=== PATIENT | male | born 1985 | race Caucasian/White ===

== ENCOUNTER 2019-09-01 17:39 | Emergency (ER) | payer OTHER ==
[~2019-09-01] VITALS: Ht 182.9 cm; Wt 80.6 kg
[2019-09-01] MEDS ORDERED: LIDOCAINE 2% MDV 20 ML VIAL SC ONE (18:00)
[2019-09-01 19:34] VITALS: BP 133/87
== END 2019-09-01 19:37 | disposition home or self-care (01) ==
LOC: M ED 17:39
DX: S61.012A Laceration without foreign body of left thumb without damage to nail, initial encounter (principal); W26.0XXA Contact with knife, initial encounter; Y92.018 Other place in single-family (private) house as the place of occurrence of the external cause